=== PATIENT | female | born 1955 | race Asian ===

== ENCOUNTER 2019-12-17 08:29 | Day surgery (SDC) | payer OTHER, MEDICAID ==
[~2019-12-17] VITALS: Ht 165.1 cm; Wt 50.8 kg
[2019-12-17] MEDS ORDERED: LIDOCAINE VISCOUS 2% 20 ML UDC ONE (09:30)
[2019-12-17] MEDS ORDERED: MIDAZOLAM 2 MG/2 ML VIAL ONE (09:30)
[2019-12-17] MEDS ORDERED: fentaNYL 0.05 MG/ML VIAL ONE (09:30)
[2019-12-17] MEDS ORDERED: MIDAZOLAM 2 MG/2 ML VIAL IVP ONE (13:35)
== END 2019-12-17 12:00 | disposition home or self-care (01) ==
LOC: MMU 08:29 → MDS 08:29 → EDSEX 15:30
PROVIDERS: ATTEND Internal Medicine Gastroenterology
DX: R10.13 Epigastric pain (principal); K29.70 Gastritis, unspecified, without bleeding; I10 Essential (primary) hypertension; Z95.0 Presence of cardiac pacemaker; Z90.49 Acquired absence of other specified parts of digestive tract; Z11.59 Encounter for screening for other viral diseases
CPT/HCPCS: 36415; 43239; 86677; J2250; U0003; J3010